=== PATIENT | female | born 1960 | race Two or more races ===

== ENCOUNTER 2017-10-14 13:44 | Outpatient (CLI) | payer OTHER | END 2017-10-14 13:50 | disposition home or self-care (01) | LOC: SONOGRAMA 13:44 | DX: C73 Malignant neoplasm of thyroid gland (principal) ==

== ENCOUNTER 2017-11-30 07:58 | Outpatient (CLI) | payer OTHER | END 2017-11-30 08:04 | disposition home or self-care (01) | LOC: LAB 07:58 | DX: C73 Malignant neoplasm of thyroid gland (principal); E78.2 Mixed hyperlipidemia; E89.0 Postprocedural hypothyroidism ==

== ENCOUNTER 2017-12-03 13:34 | Outpatient (CLI) | payer OTHER | END 2017-12-03 14:03 | disposition home or self-care (01) | LOC: NUCLEAR 13:34 | DX: C73 Malignant neoplasm of thyroid gland (principal) | CPT/HCPCS: 78018; 78020; A9528 ==